=== PATIENT | female | born 1965 | race Caucasian/White ===

== ENCOUNTER 2018-06-05 13:00 | Emergency (ER) | payer OTHER ==
--- NOTE | 2018-06-05 13:02 | ED Physician Documentation ---
General Adult - HISTORIAN Historian: patient - HPI Stated Complaint: per PCP she has afib Chief Complaint: General Adult Onset: other (possibly over 10 months ) Timing: still present Severity: mild (per PCP in august she had afib and went to ER - per pt she had no intervention ) Further Comments: yes (call from PCP that pt states she had shortness of air wi th activity over last two weeks. She was noted to have Afib in August where PCP sent her to [facility] where pt reports she was told this was due to over medication of thyroid med. She was known to have a decrease in her thyroid med and she was never re checked for afib. She was seen in office today and EKG reveals Afib with a rapid rate. She has no complaints other than shortness of breath with activity) - ROS CONST: no problems - PAST HX Past History: hypertension, other (hypothyroidism ) Allergies/Adverse Reactions: Allergies Allergy/AdvReac Type Severity Reaction Status Date / Time No Known Allergies Allergy Verified 06/05/18 13:39 Home Medications: Ambulatory Orders Medication Instructions Recorded Levothyroxine Sodium [Unithroid] 112 mcg PO DAILY 06/05/18 - SOCIAL HX Smoking History: non-smoker Alcohol Use: none Drug Use: none - FAMILY HX Family History: No - REVIEWED ASSESSMENTS Nursing Assessment Reviewed: Yes Vitals Reviewed: Yes Progress - Progress Progress: 1345: rate is still ranging from 110-135 - DG 1415: rate is now 90-97 - DG 1428: she reports she is feeling better and she needs to go by 3. Her rate has stayed under 100 for approx 30 DG 1428: Discussed with PCP DG General Adult Physical Exam - PHYSICAL EXAM GENERAL APPEARANCE: no distress EENT: eye inspection normal, no signs of dehydration NECK: normal inspection RESPIRATORY: no resp distress, chest non-tender, breath sounds normal CVS: reg rate & rhythm, heart sounds normal ABDOMEN: soft, normal bowel sounds SKIN: warm/dry, normal color EXTREMITIES: non-tender NEURO: oriented X3 Discharge Clincal Impression: A-fib Qualifiers: Atrial fibrillation type: chronic Qualified Code(s): I48.2 - Chronic atrial fibrillation Referrals: Eve Felix PRN [Primary Care Provider] - 2 Days Comments: 1. Call PCP for your follow up and cardiology appt 2. Continue meds as she prescribed 3. Return to ER for any increasing concerns Condition: Stable Disposition: HOME, SELF-CARE Decision to Admit: NO Date of Decison to Admit: 06/05/18 Decision Time: 14:32
[2018-06-05] MEDS: DILTIAZEM HCL 25 MG/5 ML VIAL IVP ONE ×2 (13:20→13:52)
[2018-06-05] MEDS: 0.9 % SODIUM CHLORIDE 1,000 ML IV ONE (13:20)
[2018-06-05 13:24] LABS: BASOPHILS % 1.2 (0.0-1.5); EOSINOPHILS % 2.4 % (0.0-6.8); MEAN CORPUSCULAR HEMOGLOBIN 32.3 pg (28.0-34.0); MONOCYTES % 5.8 % (0.0-11.0); NEUTROPHILS # 3.3 # k/uL (1.4-7.7)
[2018-06-05 13:31] VITALS: BP 160/140
[2018-06-05 13:38] LABS: eGFR (Non-African) > 60
[2018-06-05] MEDS: DILTIAZEM HCL 120 MG CAP.ER.24H PO SCH (14:28)
== END 2018-06-05 14:39 | disposition home or self-care (01) ==
LOC: ED 13:00
DX: I48.2 Chronic atrial fibrillation (principal)
CPT/HCPCS: 36415; 80053; 84436; 84479; 85025; 85610; 96374; 96376; 99283; 99284; J3490; J7030; S1016